=== PATIENT | male | born 1980 | race Caucasian/White ===

== ENCOUNTER 2018-05-13 16:04 | Emergency (ER) | payer OTHER ==
[~2018-05-13] VITALS: Ht 170.2 cm; Wt 70.3 kg
[2018-05-13 16:10] VITALS: Ht 170.2 cm; Wt 70.3 kg
[2018-05-13 19:02] VITALS: BP 112/76
== END 2018-05-13 19:02 | disposition home or self-care (01) ==
LOC: ED 16:04
DX: S23.3XXA Sprain of ligaments of thoracic spine, initial encounter (principal); S33.5XXA Sprain of ligaments of lumbar spine, initial encounter; W17.89XA Other fall from one level to another, initial encounter; Y93.89 Activity, other specified; Y92.89 Other specified places as the place of occurrence of the external cause; Y99.8 Other external cause status
CPT/HCPCS: 72072; J3010